=== PATIENT | female | born 1975 | race Caucasian/White ===

== ENCOUNTER 2018-04-28 11:52 | Outpatient (CLI) | payer BC ==
[2018-04-28 13:39] LABS: Hemoglobin 15.3 g/dL (12.0-16.0); Mean Corpuscular HGB CONC 33.1 g/dL (32.0-36.0); Mean Corpuscular Hemoglobin 32.4 pg (27.0-31.0); Mean Platelet Volume 7.7 fL (7.4-10.4); Platelet Count 282 thou/uL (130-400); RBC Distribution Width 11.9 % (11.5-14.5); Red Blood Cell (RBC) Count 4.72 mill/uL (4.20-5.40); White Blood Cell (WBC) Count 7.7 thou/uL (4.8-10.8)
[2018-04-28 13:49] LABS: BHCG - Serum Negative (NEGATIVE); Pregs Control Background? CLEAR/WHITE (CLR/WHITE); Pregs Control Bar Appear? YES (CONTROL BAR)
== END 2018-04-28 11:53 | disposition home or self-care (01) ==
LOC: LABBT 11:52
PROVIDERS: ATTEND Obstetrics & Gynecology
DX: Z01.812 Encounter for preprocedural laboratory examination (principal); N92.0 Excessive and frequent menstruation with regular cycle; N94.6 Dysmenorrhea, unspecified
CPT/HCPCS: 84703; 85027

== ENCOUNTER 2018-05-01 06:54 | Observation (INO) | payer BC ==
[2018-05-01] MEDS ORDERED: Bupivacaine HCl 0.5%/Epinephrine 1:200,000/PF 30 ml Vial ONE (07:09)
[2018-05-01] MEDS ORDERED: Thrombin 5000 UNITS/5 ML VIAL ONE (07:09)
[2018-05-01] MEDS ORDERED: Calcium Chloride 1 GM/10 ML Abboject SYRINGE ONE (07:15)
[2018-05-01] MEDS ORDERED: CEFAZOLIN 2 GM/50 ML BAG ONE (07:24)
[2018-05-01] MEDS ORDERED: Famotidine/PF 20 mg/2ml Vial ONE (08:45)
[2018-05-01] MEDS ORDERED: Midazolam HCl 2 mg/2 ml Vial ONE ×2 (08:45→09:02)
[2018-05-01] MEDS ORDERED: Scopolamine 1.5 mg/72 hour Patch ONE (08:45)
[2018-05-01] MEDS ORDERED: HYDROmorphone 2 MG/ML VIAL ONE (08:46)
[2018-05-01] MEDS ORDERED: Promethazine HCl 25 MG/ML VIAL IM PRN (11:39)
[2018-05-01] MEDS ORDERED: diphenhydrAMINE 25 MG CAP PO PRN (11:39)
[2018-05-01] MEDS ORDERED: Simethicone Chewable 80 MG TAB PO PRN (11:39)
[2018-05-01] MEDS ORDERED: Lactated Ringer's 1,000 ML IV SCH (11:45)
[2018-05-01] MEDS ORDERED: Fentanyl 100 MCG/2 ML VIAL ONE (11:58)
[2018-05-01] MEDS ORDERED: Non-Formulary Medication 1 EACH PO PRN (12:00)
[2018-05-01] MEDS ORDERED: Promethazine HCl 25 MG/ML VIAL IM/IV PRN (12:00)
[2018-05-01] MEDS ORDERED: Meperidine HCl/PF 25 MG/ML VIAL IV PRN (12:00)
[2018-05-01] MEDS ORDERED: Ondansetron HCl/PF 4 MG/2 ML Vial IVP PRN (12:00)
[2018-05-01] MEDS ORDERED: Meperidine HCl/PF 25 MG/ML VIAL ONE (12:05)
[2018-05-01] MEDS ORDERED: Succinylcholine Chloride 20 MG/ML 10 ml SYRINGE FS ONE (12:57)
[2018-05-01] MEDS ORDERED: Ketorolac Tromethamine 30 MG/ML VIAL ONE (12:57)
[2018-05-01] MEDS ORDERED: Glycopyrrolate 0.2 MG/ML 5 ML SYRINGE ONE (12:57)
[2018-05-01] MEDS ORDERED: Ondansetron PF 4 MG/2 ML Vial ONE (12:57)
[2018-05-01] MEDS ORDERED: Dexamethasone 20 MG/5 ML VIAL ONE (12:57)
[2018-05-01] MEDS ORDERED: PROPOFOL 200 MG/20 ML VIAL ONE (12:57)
[2018-05-01] MEDS ORDERED: Esmolol 100 MG/10 ML VIAL ONE (12:57)
[2018-05-01] MEDS ORDERED: Lidocaine 1% PF 5 ML VIAL ONE (12:57)
[2018-05-01] MEDS ORDERED: PHENYLEPHRINE-NS 100 MCG/ML 10 ML SYRINGE ONE (12:57)
[2018-05-01] MEDS ORDERED: Acetaminophen/Codeine 30-300mg Tablet PO PRN ×2 (13:00)
[2018-05-01] MEDS ORDERED: Ondansetron PF 4 MG/2 ML Vial IVP PRN (15:00)
[2018-05-01] MEDS ORDERED: Ketorolac Tromethamine 30 MG/ML VIAL IVP SCH (17:00)
[2018-05-01 17:09] VITALS: BP 125/79; TEMP 97.9
--- NOTE | 2018-05-04 09:55 | OP ---
DATE OF SERVICE: 05/01/2018 PREOPERATIVE DIAGNOSES: 1. A 43-year-old female with menorrhagia. 2. Dysmenorrhea. 3. Osteopenia secondary to chronic progesterone therapy. 4. Tobacco abuse. 5. Concern for a pelvic adhesive disease. POSTOPERATIVE DIAGNOSES: 1. A 43-year-old female with menorrhagia. 2. Dysmenorrhea. 3. Osteopenia secondary to chronic progesterone therapy. 4. Tobacco abuse. 5. Concern for a pelvic adhesive disease. 6. Confirmed adhesive disease. PROCEDURES PERFORMED: 1. Robotic total laparoscopic hysterectomy. 2. Bilateral salpingectomy. 3. Lysis of adhesions. 4. Enterolysis. 5. Plasmax infusion. SURGEON: Cammy Gallo MD SPECIMENS REMOVED: The uterus and tubes. ESTIMATED BLOOD LOSS: Less than 5 mL. ANESTHESIA: General. CLINICAL HISTORY: This patient is a 43-year-old female who presented with a complaint of p ainful and heavy menstrual bleeding in the past. The patient has been managed with Depo-Provera ever y 3 months for many, many years. She recently had a bone density scan, which showed osteopenia. The patient is significantly underweight and has a longstanding tobacco history as well. She no longer wanted to use Depo-Provera to manage her menorrhagia and dysmenorrhea and was requesting a hysterecto my. She was evaluated by physical exam and ultrasonography, which showed a normal uterus and adnexal structures. The risks, benefits and possible complications as well as alternatives were discussed w ith the patient. She was supported in her plan to stop the Depo-Provera therapy in order to preserve bone loss. The patient is not a candidate for any estrogen containing therapies, given her longstan ding history of tobacco abuse. She was also counseled on smoking cessation. DETAILS OF PROCEDURE: The patient was taken to the operating room where general anesthesia was obtai preeti. She was laid in the supine position with her legs in the Yellofin stirrups and she was prepped and draped in the usual sterile fashion. After placing a Graham catheter atraumatically with drainage of clear urine, a single-tooth tenaculum was used to grasp the anterior lip of the cervix and she wa s gradually dilated to accommodate her uterine manipulator. The stay suture was circumferentially pl aced at the cervix and the KARLEE uterine manipulator was secured to the cervix. The single-tooth juliann culum was then removed and the legs were placed in a downward position. The attention was turned to the abdomen where the abdomen was tented and an incision in the lower umbilical border was made. It was through this incision at the 5-mm, direct view scope was used to enter the abdomen. Once in the abdomen, the abdomen was insufflated with CO2 gas and a survey of the pelvic structures noted some ad hesive disease with the bowel draped to the left and the right side of the pelvic wall. The uterus w as small and the ovaries appeared within normal limits. There was no sign of endometriosis. The dec ision was then made to take only the uterus and fallopian tubes. The accessory port sites were made in the left and right quadrant under direct visualization with an 8-mm trocar for the robotic arms. The assistance port then was made in the right lower quadrant with a 10-mm trocar and once these were placed, the patient was placed into steep Trendelenburg. The 5-mm umbilical site was exchanged for a 12 mm to accommodate the robotic camera. The robot was then docked and the ports were attached to the robotic arms. The surgery then proceeded as follows. The uterus was lifted up and the ureteral pathway was identified in the left lower adnexa. The fallopian tube was then elevated and held by th e assistant professor of geography and the mesosalpinx was dissected towards the uterine body. The IP was then severed at t he uterine body with a series of desiccation clamping and then severing of the tissue with the monopo lar scissors. Once this was performed, the round ligaments were also taken down in the similar fashi on and the broad ligament was opened to skeletonize the uterine arteries. Once the bladder flap was created anteriorly towards the midline, further skeletonized in the uterine arteries, the uterine art eries were taken down at the junction of the cervix and the vagina. The pelvic vasculature then was dropped out laterally and in similar fashion, the right adnexa was taken down and the uterine arterie s were ligated dropping out the ovary and pelvic vasculature out laterally. Once this was performed and the blood supply was occlude, the circumferential incision was made around the base of the uterus at the junction of the cervix and the vagina. The bladder flap was developed prior to this and drop ped out inferiorly. Once the circumferential incision was completed, the uterus was then taken out of the pelvis and into the vagina and held there to maintain insufflation. The tubes were attached to the uterus and were also removed. The closure of the vaginal cuff then ensued with a V-Loc suture in a running fashion and then reperitonealizing the closure at the end of the case. The bowel again wa s noted to be draping on the left and the right pelvic sidewall and these were taken down carefully c loser to the pelvic side wall, allowing the bowel to re-assume a natural position. Once this was per formed, the Plasmax was then smeared over the denuded areas to cover the wounds and the anatomy was t hen viewed for one last survey and noted to be within normal limits. The robot was undocked. The tr ocars were removed and the CO2 gas was released from the abdomen with the assistance of breath from t anesthesiologist. The skin closure then was in the running fashion in all the suture sites, first closing the deeper ports with the UR needle at the fascia, then at the skin for the trocar sites sal t were greater than 8 mm at the umbilicus and the assistant professor of geography port site. All trocar sites were closed with excellent hemostasis. A Steri-Strip was placed over these closures except for in the umbilicus where a 2 x 2 and a Tegaderm was placed over this incision. Band-Aids were used to cover the other i ncisions. The specimen was then taken from the vagina and the vagina was cleansed of all debris. Th e cuff was felt with the surgeon's finger and noted to be intact. The uterus and tubes were sent off to pathology for evaluation. There were no other issues surrounding this surgery. All needle, spon ge, lap, and instrument counts were correct x2 at the end of the procedure. The patient was transfer red to a [place] and then transferred to the post-surgical unit in satisfactory condition.
[2018-05-06] MEDS ORDERED: Ibuprofen 800 MG TAB PO SCH (21:00)
== END 2018-05-01 18:00 | disposition home or self-care (01) ==
LOC: SDC 06:54 → 3SE 13:10
PROVIDERS: ADMIT Obstetrics & Gynecology; ATTEND Obstetrics & Gynecology
PROC: 0UT94ZZ Resection of Uterus, Percutaneous Endoscopic Approach (ICD-10-PCS; principal; 2018-05-01)
PROC: 0UT74ZZ Resection of Bilateral Fallopian Tubes, Percutaneous Endoscopic Approach (ICD-10-PCS; 2018-05-01)
DX: N72 Inflammatory disease of cervix uteri (principal); N80.0 Endometriosis of uterus; N73.6 Female pelvic peritoneal adhesions (postinfective); T38.5X5A Adverse effect of other estrogens and progestogens, initial encounter; M85.80 Other specified disorders of bone density and structure, unspecified site; F17.210 Nicotine dependence, cigarettes, uncomplicated; K21.9 Gastro-esophageal reflux disease without esophagitis; R63.6 Underweight; Z68.20 Body mass index [BMI] 20.0-20.9, adult
CPT/HCPCS: 88307; 96374; 96375; G0378; J0131; J0670; J1100; J1170; J1885; J2001; J2175; J2250; J2405; J2704; J3010; S0028

== ENCOUNTER 2018-05-04 11:07 | Outpatient (CLI) | payer BC ==
[2018-05-04 11:41] LABS: #Basophils 0.1 thou/uL (0.0-0.2); #Eosinphils 0.1 thou/uL (0.0-0.7); #Lymphocytes 1.4 thou/uL (1.20-3.40); #Monocytes 0.7 thou/uL (0.11-0.59); %Eosinophils 0.5 % (0.0-10.0); %Lymphocytes 12.1 % (21.0-51.0); %Monocytes 6.2 % (0.0-10.0); %Neutrophils 80.1 % (42.0-75.0); Hemoglobin 14.8 g/dL (12.0-16.0); Mean Corpuscular HGB CONC 33.5 g/dL (32.0-36.0); Mean Corpuscular Hemoglobin 30.8 pg (27.0-31.0); Mean Corpuscular Volume 91.9 fL (78.0-98.0); Platelet Count 214 thou/uL (130-400); RBC Distribution Width 11.4 % (11.5-14.5); Red Blood Cell (RBC) Count 4.81 mill/uL (4.20-5.40); White Blood Cell (WBC) Count 11.3 thou/uL (4.8-10.8)
[2018-05-04 11:52] LABS: ALT (SGPT) 13 U/L (8-55); AST (SGOT) 20 U/L (5-34); Albumin 4.8 g/dL (3.5-5.0); Alkaline Phosphatase 58 U/L (40-150); Anion Gap 18 mmol/L (10-20); BUN (Urea Nitrogen) 7 mg/dL (7.0-18.7); Bilirubin, Total 1.2 mg/dL (0.2-1.2); Calc. Creatinine Clearance 0 mL/min (70-130); Calcium 10.2 mg/dL (7.8-10.44); Carbon Dioxide 22 mmol/L (22-29); Chloride 98 mmol/L (98-107); Estimated GFR-MDRD 81; Globulin 3.4 g/dL (2.4-3.5); Glucose 94 mg/dL (70-105); Potassium 4.2 mmol/L (3.5-5.1); Protein, Total 8.2 g/dL (6.0-8.3); Sodium 134 mmol/L (136-145)
--- NOTE | 2018-05-04 14:05 | RAD ---
PA AND LATERAL CHEST: HISTORY: Shortness of breath and cough. FINDINGS: The heart size is normal. The lungs are well expanded without focal areas of consolidation pneumotho races, or pleural effusions. No acute osseous abnormalities are seen. IMPRESSION: No radiographic evidence of acute cardiopulmonary process. POS: [facility]
== END 2018-05-04 11:08 ==
LOC: SCSRAD 11:07
PROVIDERS: ATTEND Family Medicine
DX: R05 Cough (principal)
CPT/HCPCS: 36415; 71046; 80053; 85025; 85379

== ENCOUNTER 2018-05-04 13:41 | Emergency (ER) | payer BC ==
[~2018-05-04 13:41] MED LIST: ISOVUE-370 76%-LOCM 1 ML ONE
[2018-05-04 14:13] LABS: #Eosinphils 0.1 thou/uL (0.0-0.7); #Lymphocytes 1.6 thou/uL (1.20-3.40); #Monocytes 0.7 thou/uL (0.11-0.59); #Neutrophils 8.6 thou/uL (1.40-6.50); %Basophils 0.4 % (0.0-1.0); %Eosinophils 0.8 % (0.0-10.0); %Lymphocytes 14.2 % (21.0-51.0); %Monocytes 6.3 % (0.0-10.0); %Neutrophils 78.4 % (42.0-75.0); Hemoglobin 15.2 g/dL (12.0-16.0); Mean Corpuscular HGB CONC 33.1 g/dL (32.0-36.0); Mean Corpuscular Volume 96.8 fL (78.0-98.0); Mean Platelet Volume 7.6 fL (7.4-10.4); Platelet Count 265 thou/uL (130-400); RBC Distribution Width 11.6 % (11.5-14.5); Red Blood Cell (RBC) Count 4.74 mill/uL (4.20-5.40)
[2018-05-04 14:31] LABS: ALT (SGPT) 12 U/L (8-55); AST (SGOT) 18 U/L (5-34); Albumin 4.8 g/dL (3.5-5.0); Alkaline Phosphatase 64 U/L (40-150); Anion Gap 16 mmol/L (10-20); BUN (Urea Nitrogen) 10 mg/dL (7.0-18.7); Bilirubin, Total 1.1 mg/dL (0.2-1.2); CK (CPK) 79 U/L (29-168); Calc. Creatinine Clearance 0 mL/min (70-130); Calcium 10.4 mg/dL (7.8-10.44); Carbon Dioxide 21 mmol/L (22-29); Chloride 97 mmol/L (98-107); Estimated GFR-MDRD 84; Globulin 3.5 g/dL (2.4-3.5); Glucose 98 mg/dL (70-105); Potassium 4.2 mmol/L (3.5-5.1); Protein, Total 8.3 g/dL (6.0-8.3); Sodium 130 mmol/L (136-145)
[2018-05-04 14:35] LABS: CKMB 0.7 ng/mL (0-6.6); Troponin I Less than 0.010 ng/mL (< 0.028)
--- NOTE | 2018-05-04 15:47 | CT ---
CT PULMONARY ANGIOGRAM WITH IV CONTRAST AND 3D POST PROCESSING: HISTORY: Shortness of breath and elevated D-dimer. FINDINGS: The pulmonary arterial vasculature is well opacified without filling defects to suggest pulmonary emb olism. The thoracic aorta is well opacified without aneurysm or dissection. No pleural or pericardi al effusions are seen. No pneumothoraces, lobar consolidation, or pulmonary masses are identified. There is a 4 mm parenchymal lung nodule in the right lower lobe. A mild patchy infiltrate is seen at the posterior aspect of the right upper lobe and in the medial segment of the right middle lobe. Th ere are emphysematous changes in the lung kwong bilaterally. No acute osseous abnormalities are see n. IMPRESSION: 1. No evidence of pulmonary embolism. 2. Mild patchy infiltrates in the right lung. 3. A 4 mm right lower lobe lung nodule. Recommend follow-up CT scan in 12 months. POS: [facility]
== END 2018-05-04 16:34 | disposition home or self-care (01) ==
LOC: ERS 13:41
DX: J18.9 Pneumonia, unspecified organism (principal); F17.210 Nicotine dependence, cigarettes, uncomplicated; Z79.899 Other long term (current) drug therapy
CPT/HCPCS: 36415; 71046; 71275; 80053; 82553; 84484; 85025; 85379; 93005; 94640; 96360; J7620

== ENCOUNTER 2018-06-29 17:00 | Outpatient (CLI) | payer BC | END 2018-06-29 17:01 | disposition home or self-care (01) | LOC: SLEEPLAB 17:00 | PROVIDERS: ATTEND Internal Medicine | DX: G47.33 Obstructive sleep apnea (adult) (pediatric) (principal); R09.89 Other specified symptoms and signs involving the circulatory and respiratory systems; R06.83 Snoring; R35.1 Nocturia; G47.10 Hypersomnia, unspecified | CPT/HCPCS: 95806 ==

== ENCOUNTER 2019-01-21 14:22 | Outpatient (CLI) | payer BC ==
--- NOTE | 2019-02-02 06:44 | MMO ---
Bilateral MAMMO Bilat Screen [facility]. CLINICAL HISTORY: Patient is 43 years old and is seen for screening. The patient has the following family history of breast cancer: grandmother. The patient has no personal history of cancer. VIEWS: The views performed were: bilateral craniocaudal with tomosynthesis and bilateral mediolateral oblique with tomosynthesis. FILMS COMPARED: The present examination has been compared to a prior imaging study performed at MAMMOGRAM FINDINGS: The breasts are heterogeneously dense, which could obscure a lesion on mammography. There are no suspicious masses, suspicious calcifications, or new areas of architectural distortion. IMPRESSION: THERE IS NO MAMMOGRAPHIC EVIDENCE OF MALIGNANCY. A ROUTINE FOLLOW-UP MAMMOGRAM IN 1 YEAR IS RECOMMENDED. THE RESULTS OF THIS EXAM WERE SENT TO THE PATIENT. ACR BI-RADS Category 1 - Negative MAMMOGRAPHY NOTE: 1. A negative mammogram report should not delay a biopsy if a dominant of clinically suspicious mass is present. 2. Approximately 10% to 15% of breast cancers are not detected by mammography. 3. Adenosis and dense breasts may obscure an underlying neoplasm. Reported by: SNEHAL VALENTIN MD Electonically Signed: [id number]
== END 2019-01-21 14:23 | disposition home or self-care (01) ==
LOC: BICMAMMO 14:22
PROVIDERS: ATTEND Obstetrics & Gynecology
DX: Z12.31 Encounter for screening mammogram for malignant neoplasm of breast (principal); Z80.3 Family history of malignant neoplasm of breast
CPT/HCPCS: 77063; 77067

== ENCOUNTER 2019-01-27 08:23 | Outpatient (CLI) | payer BC ==
--- NOTE | 2019-01-27 09:04 | CT ---
CT CHEST WITHOUT CONTRAST: HISTORY: Pulmonary nodule. COMPARISON: CT angiogram of the chest 05/04/2018. FINDINGS: Limited evaluation of the mediastinum due to the lack of IV contrast. No mediastinal mass, lymphaden opathy, or hematoma. Heart size is within normal limits. No significant pericardial fluid. Visualized aorta has a normal caliber. No periaortic fat stranding. The visualized upper solid abdo daiana viscera is grossly unremarkable. Trachea and central bronchi are patent. Minimal emphysematous changes in the upper lobes. No pleural effusion. No consolidation with air bronchogra ms. Linear density in the lingula likely represents subsegmental atelectasis or scar. Right lung: Stable 3 mm ground glass nodule in the right lower lobe. Left lung: No suspicious masses or nodules. No lytic or blastic lesions within the osseous structures. IMPRESSION: 1. Scar/atelectasis in the lingula. 2. Stable 3 mm nodule in the right lower lobe. 3. Additional lung parenchymal nodules are not appreciated. Transcribed Date/Time: 01/27/2019 9:47 AM
== END 2019-01-27 08:24 | disposition home or self-care (01) ==
LOC: TBSIIMAG 08:23
PROVIDERS: ATTEND Internal Medicine
DX: R91.1 Solitary pulmonary nodule (principal)
CPT/HCPCS: 71250

== ENCOUNTER 2020-09-05 08:01 | Outpatient (CLI) | payer BC | END 2020-09-05 08:02 | disposition home or self-care (01) | LOC: BICRAD 08:01 | PROVIDERS: ATTEND Internal Medicine Critical Care Medicine | DX: R06.00 Dyspnea, unspecified (principal) | CPT/HCPCS: 71046 ==

== ENCOUNTER 2020-09-27 11:51 | Outpatient (CLI) | payer BC | END 2020-09-27 11:52 | disposition home or self-care (01) | LOC: CT 11:51 | PROVIDERS: ATTEND Internal Medicine Critical Care Medicine | DX: J44.9 Chronic obstructive pulmonary disease, unspecified (principal); R91.1 Solitary pulmonary nodule | CPT/HCPCS: 71250 ==

== ENCOUNTER 2021-09-26 10:09 | Outpatient (CLI) | payer BC | END 2021-09-26 10:10 | disposition home or self-care (01) | LOC: RAD 10:09 | PROVIDERS: ATTEND Internal Medicine Critical Care Medicine | DX: R06.00 Dyspnea, unspecified (principal) | CPT/HCPCS: 71046 ==

== ENCOUNTER 2022-01-03 15:40 | Outpatient (CLI) | payer BC | END 2022-01-03 15:41 | disposition home or self-care (01) | LOC: BICRAD 15:40 | PROVIDERS: ATTEND Nurse Practitioner Family | DX: M54.50 Low back pain, unspecified (principal); M54.6 Pain in thoracic spine; M54.2 Cervicalgia; M47.812 Spondylosis without myelopathy or radiculopathy, cervical region | CPT/HCPCS: 72040; 72072; 72100 ==

== ENCOUNTER 2022-07-30 08:52 | Emergency (ER) | payer BC ==
[2022-07-30] MEDS ORDERED: Aspirin Chewable 81 MG TAB ONE (09:27)
[2022-07-30] MEDS ORDERED: Morphine 4 MG/ML VIAL ONE (09:27)
[2022-07-30] MEDS ORDERED: Iopamidol-370 76% 500 ML 1 ML ONE (09:44)
[2022-07-30 09:50] LABS: #Basophils 0.1 thou/uL (0.0-0.2); #Eosinphils 0.1 thou/uL (0.0-0.7); #Lymphocytes 2.1 thou/uL (1.20-3.40); #Monocytes 0.5 thou/uL (0.11-0.59); #Neutrophils 5.1 thou/uL (1.40-6.50); %Basophils 1.2 % (0.0-1.0); %Eosinophils 0.8 % (0.0-10.0); %Lymphocytes 26.5 % (21.0-51.0); %Neutrophils 65.6 % (42.0-75.0); Hemoglobin 14.7 g/dL (12.0-16.0); Mean Corpuscular HGB CONC 33.3 g/dL (32.0-36.0); Mean Corpuscular Hemoglobin 35.4 pg (27.0-31.0); Mean Platelet Volume 7.8 fL (7.4-10.4); Platelet Count 249 10x3/uL (130-400); RBC Distribution Width 12.2 % (11.5-14.5); Red Blood Cell (RBC) Count 4.16 mill/uL (4.20-5.40); White Blood Cell (WBC) Count 7.8 10x3/uL (4.8-10.8)
[2022-07-30 09:58] LABS: ALT (SGPT) 17 U/L (8-55); AST (SGOT) 36 U/L (5-34); Albumin 4.9 g/dL (3.5-5.0); Alkaline Phosphatase 61 U/L (40-110); Anion Gap 18 mmol/L (10-20); BUN (Urea Nitrogen) 4 mg/dL (7.0-18.7); Bilirubin, Total 0.8 mg/dL (0.2-1.2); Calc. Creatinine Clearance 0 mL/min (70-130); Calcium 10.3 mg/dL (7.8-10.44); Carbon Dioxide 22 mmol/L (22-29); Chloride 100 mmol/L (98-107); Estimated GFR 108; Globulin 3.3 g/dL (2.4-3.5); Glucose 69 mg/dL (70-105); Protein, Total 8.2 g/dL (6.0-8.3); Sodium 136 mmol/L (136-145)
[2022-07-30 10:30] LABS: BHCG - Serum Negative (NEGATIVE); Pregs Control Background? CLEAR/WHITE (CLR/WHITE); Pregs Control Bar Appear? YES (CONTROL BAR)
== END 2022-07-30 11:53 | disposition home or self-care (01) ==
LOC: ERS 08:52
DX: R07.9 Chest pain, unspecified (principal); J44.9 Chronic obstructive pulmonary disease, unspecified; F17.210 Nicotine dependence, cigarettes, uncomplicated
CPT/HCPCS: 71045; 71275; 80053; 84484; 84703; 85025; 85379; 93005; 96374; J2270; Q9967